=== PATIENT | male | born 1950 | race Hispanic/Latino ===

== ENCOUNTER 2018-01-04 09:26 | Observation (INO) | payer BC, MEDICARE ==
--- NOTE | 2017-12-30 10:58 | Anesthesia Consultation ---
Anesthesia Consult and Med Hx Date of service: 12/30/17 - Airway Anesthetic Teeth Evaluation: Good ROM Head & Neck: Adequate Mental/Hyoid Distance: Adequate Mallampati Class: Class III Intubation Access Assessment: Possibly Difficult - Pulmonary Exam CTA: Yes - Cardiac Exam Cardiac Exam: RRR - Pre-Operative Health Status ASA Pre-Surgery Classification: ASA3 Proposed Anesthetic Plan: General (adductor Canal black)
[~2018-01-04 09:26] MED LIST: MARCAINE-EPI 0.5%-1:200,000 INFILTRATI ONE; NEURONTIN PO NR; VANCOMYCIN PHARMACY TO DOSE IV SCH; VANCOMYCIN/NS 1 GM/250 ML 1 GM/250 ML BAG IV SCH; VERSED IV NR
[2018-01-04] MEDS ORDERED: NACL BACTERIOSTATIC INFILTRATI ONE (10:09)
[2018-01-04] MEDS ORDERED: MARCAINE 0.5% 30 ML INFILTRATI ONE (10:25)
[2018-01-04] MEDS ORDERED: PEPCID IV ONE (10:26)
[2018-01-04] MEDS: LACTATED RINGERS 1,000 ML IV SCH (10:30)
[2018-01-04 10:32] LABS: Basophils % (Auto) 0.6 % (0.0-1.8); Eosinophils # (Auto) 0.2 K/mm3 (0.0-0.4); Eosinophils % (Auto) 3.3 % (0.0-4.3); Hematocrit 47.3 % (35.5-45.6); Hemoglobin 16.4 gm/dl (11.8-15.2); Lymphocytes # (Auto) 1.5 K/mm3 (1.2-5.4); Lymphocytes % (Auto) 21.7 % (13.4-35.0); Mean Corpuscular HGB Conc 35 % (32-34); Mean Corpuscular Hemoglobin 31 pg (28-32); Mean Corpuscular Volume 88 fl (84-94); Monocytes # (Auto) 0.6 K/mm3 (0.0-0.8); Monocytes % (Auto) 8.5 % (0.0-7.3); Platelet Count 223 K/mm3 (140-440); Red Blood Count 5.36 M/mm3 (3.65-5.03); Red Cell Distribution Width 13.5 % (13.2-15.2)
[2018-01-04] MEDS ORDERED: DIPRIVAN 10 MG/ML IV ONE (10:54)
[2018-01-04] MEDS ORDERED: ZEMURON IV ONE ×3 (10:55→14:42)
[2018-01-04] MEDS ORDERED: DILAUDID ONE ×2 (10:55→16:57)
[2018-01-04] MEDS ORDERED: XYLOCAINE MPF 2% ONE (10:55)
[2018-01-04] MEDS ORDERED: MARCAINE-EPI 0.5%-1:200,000 INFILTRATI ONE ×2 (10:56→15:34)
[2018-01-04] MEDS ORDERED: NEOSPORIN GU IR ONE ×2 (10:56→14:25)
[2018-01-04] MEDS ORDERED: NACL 0.9% 200 ML ONE (11:05)
[2018-01-04] MEDS ORDERED: TRANEXAMIC ACID ONE (11:05)
[2018-01-04 11:35] LABS: BUN/Creatinine Ratio 26; Blood Urea Nitrogen 18 mg/dL (9-20); Calcium 9.3 mg/dL (8.4-10.2); Hemolysis Index 7
[2018-01-04] MEDS ORDERED: DECADRON ONE (13:13)
[2018-01-04] MEDS ORDERED: ePHEDrine 50 MG/5 ML-0.9% NACL IV ONE (13:29)
[2018-01-04] MEDS ORDERED: ROBINUL ONE (13:51)
[2018-01-04] MEDS ORDERED: BLOXIVERZ ONE (14:58)
[2018-01-04] MEDS ORDERED: LACTATED RINGERS 1,000 ML ONE (15:13)
[2018-01-04] MEDS ORDERED: DILAUDID IV PRN (17:00)
[2018-01-04] MEDS: DILAUDID IV PRN ×2 (17:00→17:20)
[2018-01-04] MEDS ORDERED: SODIUM CHLORIDE FLUSH SYRINGE 10 ML IV PRN (17:00)
[2018-01-04] MEDS ORDERED: VANCOMYCIN/NS 1 GM/250 ML 1 GM/250 ML BAG IV SCH (17:00)
--- NOTE | 2018-01-04 18:03 | Operative Report ---
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 PROCEDURE PERFORMED: Right knee unicompartmental knee replacement utilizing [employer] Childress system with size large cemented femur, size D cemented tibia, size 5 mm polyethylene insert. SURGEON: Nickolas Zendejas M.D. WATER FILTERER: Damián Schmidt CSA. ANESTHESIA: General plus adductor block. ESTIMATED BLOOD LOSS: Minimal. COMPLICATIONS: None. DESCRIPTION OF PROCEDURE: The patient underwent successful induction of anesthesia as noted. Following this, the lower extremity was meticulously prepped and draped in usual fashion after being positioned in a leg youssef. Antibiotics were preadministered. Exsanguinated and tourniquet inflated. A standard medial parapatellar incision was made with sharp dissection and carried down through the skin and subcutaneous tissue with an arthrotomy extending from the superior pole of the tibial tubercle. Sharp dissection with appropriate exposure of the joint was carried out. Lateral compartment was well preserved and intact ACL and well preserved patellofemoral compartment. Medial compartment ankylosis was noted with marked varus alignment. He had a very tight knee. Appropriate exposure of the medial joint line was carried out with resection of the meniscus. At this point in time, standard cuts were then made triplanar with appropriate alignment on the tibia utilizing extramedullary jig. Excellent cuts were made for a size 4 mm/5 mm sizing. Intramedullary chris was introduced into the femur. The posterior cut was made with appropriate alignment jig followed by spigot reamers. Gaps were then appropriately balanced for sizing for 4-5. The remainder of the meniscus was removed. Right posterior osteophytes were removed. The anterior chamfer cut was made. Wound thoroughly irrigated. The keel prepared appropriately, excellent sizing for a size D. The components were then cemented in place. It was felt that a 5 excellent sizing, slightly loose with 4 and tight with 6. Polyethylene was placed with full range of motion on the table with excellent stability, flexion and extension. All excess cement removed. Wound once again irrigated and Marcaine applied. The arthrotomy reapproximated with Ethibond sutures followed by Vicryl and Monocryl for the skin. A sterile dressing was applied, taken to the recovery room in satisfactory condition having tolerated the procedure well. [facility]# [id number] RDP/NTS
[2018-01-04] MEDS: XARELTO PO SCH (22:44)
[2018-01-04] MEDS: D5NS 1,000 ML IV SCH (22:44)
[2018-01-04] MEDS ORDERED: APRESOLINE IV PRN (22:49)
--- NOTE | 2018-01-04 22:49 | Consultation ---
History of Present Illness - Reason for Consult Consult date: 01/04/18 hypertension - History of Present Illness 67-year-old man with a history of hypertension, GERD, sleep apnea, status post right knee surgery is being consulted for management of hypertension. He states his blood pressures usually controlled at home. Sometimes he forget to take his antihypertensive but his blood pressure is fine. He does not wear mass at night for sleep apnea. Pain is controlled Review of systems Constitutional: no weight loss, chills, fever Ears, eyes, nose, mouth and throat: no nasal congestion, no nasal discharge, no sinus pressure, no vision change, no red eye. Neck: No neck pain or rigidity. Cardiovascular: no chest pain, palpitations Respiratory: no cough, shortness of breath Gastrointestinal: no abdominal pain hematochezia Genitourinary : no frequency , no hematuria Musculoskeletal: no muscle ache Integumentary: no rash, no pruritis Neurological: no parathesias, no numbness, no focal weakness Endocrine: no cold or heat intolerance, no polyuria or polydipsia Hematologic/Lymphatic: no easy bruising, no easy bleeding, no gland swelling Allergic/Immunologic: no urticaria, no angioedema. PAST MEDICAL HISTORY: hypertension, GERD, sleep apnea, PAST SURGICAL HISTORY: Tonsillectomy, right knee SOCIAL HISTORY: No alcohol, no drugs, tobacco FAMILY HISTORY: Hypertension Medications and Allergies Allergies Allergy/AdvReac Type Severity Reaction Status Date / Time Penicillins Allergy Unknown Verified 12/30/17 12:14 Sulfa (Sulfonamide Allergy Unknown Verified 12/30/17 12:14 Antibiotics) Home Medications Medication Instructions Recorded Confirmed Last Taken Type Celecoxib [celeBREX] 200 mg PO BID 12/30/17 01/04/18 12/28/17 History Krill/Om-3/Dha/Epa/Phospho/Ast 1 each PO DAILY 12/30/17 01/04/18 12/21/17 History [Krill Oil 1,000 mg Softgel] Losartan/Hydrochlorothiazide 1 each PO DAILY 12/30/17 01/04/18 01/03/18 23:59 History [Losartan-Hctz 50-12.5 mg Tab] Omeprazole 20 mg PO DAILY 12/30/17 01/04/18 01/03/18 23:59 History Rivaroxaban [Xarelto] 10 mg PO QDAY 01/04/18 01/04/18 01/03/18 History Active Meds: Active Medications Aspirin (Baby Aspirin) 162 mg PO QDAY ROSA Celecoxib (Celebrex) 200 mg PO BID ROSA Last Admin: 01/04/18 21:30 Dose: 200 mg Hydromorphone HCl (Dilaudid) 0.5 mg IV Q3H PRN PRN Reason: Pain , Severe (7-10) Lactated Ringer's (Lactated Ringers) 1,000 mls @ 100 mls/hr IV DIRECT ROSA Last Admin: 01/04/18 10:30 Dose: 100 mls/hr Vancomycin HCl (Vancomycin/Ns 1 Gm/250 Ml) 1 gm in 250 mls @ 167.007 mls/hr IV PREOP ROSA; Protocol Stop: 01/04/18 23:00 Last Admin: 01/04/18 11:10 Dose: 167.007 mls/hr Dextrose/Sodium Chloride (D5ns) 1,000 mls @ 125 mls/hr IV DIRECT ROSA Last Admin: 01/04/18 22:44 Dose: 125 mls/hr Midazolam HCl (Versed) 2 mg IV PREOP NR Stop: 01/04/18 23:59 Oxycodone/Acetaminophen (Percocet 5/325) 2 tab PO Q4H PRN PRN Reason: Pain, Moderate (4-6) Rivaroxaban (Xarelto) 10 mg PO QDAY@2200 ROSA; Protocol Last Admin: 01/04/18 22:44 Dose: 10 mg Sodium Chloride (Sodium Chloride Flush Syringe 10 Ml) 10 ml IV PRN PRN PRN Reason: LINE FLUSH Vancomycin HCl (Vancomycin Pharmacy To Dose) 1 each IV PKCONSULT [facility] Exam - Physical Exam Narrative exam: Gen. appearance: Patient lying in bed, no apparent distress HEENT: Normocephalic, atraumatic, pupils equally round and reactive to light, extraocular movement intact, and no sclericterus,. No JVD or thyromegaly or nodule,neck supple, no carotid bruit ,mucous membranes moist, no exudate or erythema Heart: S1, S2, regular rate and rhythm Lungs: Clear bilaterally, breathing comfortable Abdomen: Positive bowel sounds, non-tender, nondistended, no organomegaly Extremity:no edema cyanosis, clubbing Skin: no rash, dry, warm Neuro: Oriented 3, cranial nerves II-12 intact, speech is fluent, sensory intact - Constitutional Vitals: Temp Pulse Resp BP Pulse Ox 97.3 F L 92 H 16 134/78 96 01/04/18 20:25 01/04/18 20:25 01/04/18 21:30 01/04/18 20:25 01/04/18 20:25 Results - Labs CBC & Chem 7: 01/04/18 10:15 01/04/18 10:15 Labs: Abnormal lab results 01/04/18 01/04/18 Range/Units 10:15 10:15 RBC 5.36 H (3.65-5.03) M/mm3 Hgb 16.4 H (11.8-15.2) gm/dl Hct 47.3 H (35.5-45.6) % MCHC 35 H (32-34) % Bacon % (Auto) 8.5 H (0.0-7.3) % Creatinine 0.7 L (0.8-1.5) mg/dL Assessment and Plan Assessment Hypertension GERD Plan Blood pressure is controlled hold home antihypertensive IV hydralazine as needed if blood pressure is uncontrolled
[2018-01-05] MEDS: LACTATED RINGERS 1,000 ML IV SCH (07:07)
[2018-01-05] MEDS ORDERED: NON-FORMULARY (Omeprazole [Omeprazole] 20 MG) PO SCH (10:00)
[2018-01-05] MEDS: BABY ASPIRIN PO SCH (10:12)
[2018-01-05] MEDS: PROTONIX PO SCH (10:12)
--- NOTE | 2018-01-05 10:43 | Progress Note ---
Assessment and Plan Assessment and plan: Hypertension. Continue to hold home medication of losartan for now. Restart as needed. Continue when necessary hydralazine. GERD. Continue Protonix daily. Right knee severe DJD s/p knee replacement. Continue per orthopedics History Interval history: No new issues overnight. Hospitalist Physical - Constitutional Vitals: Temp Pulse Resp BP Pulse Ox 98.7 F 83 18 122/72 96 01/05/18 08:20 01/05/18 08:19 01/05/18 08:20 01/05/18 08:19 01/05/18 09:47 General appearance: Present: no acute distress, well-nourished - EENT Eyes: Present: PERRL, EOM intact ENT: hearing intact, clear oral mucosa, dentition normal - Neck Neck: Present: supple, normal ROM - Respiratory Respiratory effort: normal Respiratory: bilateral: CTA - Cardiovascular Rhythm: regular Heart Sounds: Present: S1 & S2. Absent: gallop, rub - Extremities Extremities: no ischemia, No edema, Full ROM - Abdominal General gastrointestinal: soft, non-tender, non-distended, normal bowel sounds - Integumentary Integumentary: Present: clear, warm, dry - Neurologic Neurologic: CNII-XII intact, moves all extremities Results - Labs CBC & Chem 7: 01/04/18 10:15 01/04/18 10:15 Labs: Laboratory Last Values WBC 7.0 K/mm3 (4.5-11.0) 01/04/18 10:15 RBC 5.36 M/mm3 (3.65-5.03) H 01/04/18 10:15 Hgb 16.4 gm/dl (11.8-15.2) H 01/04/18 10:15 Hct 47.3 % (35.5-45.6) H 01/04/18 10:15 MCV 88 fl (84-94) 01/04/18 10:15 MCH 31 pg (28-32) 01/04/18 10:15 MCHC 35 % (32-34) H 01/04/18 10:15 RDW 13.5 % (13.2-15.2) 01/04/18 10:15 Plt Count 223 K/mm3 (140-440) 01/04/18 10:15 Lymph % (Auto) 21.7 % (13.4-35.0) 01/04/18 10:15 Kimball % (Auto) 8.5 % (0.0-7.3) H 01/04/18 10:15 Eos % (Auto) 3.3 % (0.0-4.3) 01/04/18 10:15 Baso % (Auto) 0.6 % (0.0-1.8) 01/04/18 10:15 Lymph # 1.5 K/mm3 (1.2-5.4) 01/04/18 10:15 Kimball # 0.6 K/mm3 (0.0-0.8) 01/04/18 10:15 Eos # 0.2 K/mm3 (0.0-0.4) 01/04/18 10:15 Baso # 0.0 K/mm3 (0.0-0.1) 01/04/18 10:15 Seg Neutrophils % 65.9 % (40.0-70.0) 01/04/18 10:15 Seg Neutrophils # 4.6 K/mm3 (1.8-7.7) 01/04/18 10:15 Sodium 138 mmol/L (137-145) 01/04/18 10:15 Potassium 3.9 mmol/L (3.6-5.0) 01/04/18 10:15 Chloride 99.7 mmol/L (98-107) 01/04/18 10:15 Carbon Dioxide 25 mmol/L (22-30) 01/04/18 10:15 Anion Gap 17 mmol/L 01/04/18 10:15 BUN 18 mg/dL (9-20) 01/04/18 10:15 Creatinine 0.7 mg/dL (0.8-1.5) L 01/04/18 10:15 Estimated GFR > 60 ml/min 01/04/18 10:15 BUN/Creatinine Ratio 26 % 01/04/18 10:15 Glucose 93 mg/dL (75-100) 01/04/18 10:15 Calcium 9.3 mg/dL (8.4-10.2) 01/04/18 10:15
[2018-01-05] MEDS: PERCOCET 5/325 PO PRN ×2 (12:07→18:01)
[2018-01-05] MEDS: D5NS 1,000 ML IV SCH (17:06)
[2018-01-05] MEDS: XARELTO PO SCH (21:05)
[2018-01-06] MEDS: PERCOCET 5/325 PO PRN ×3 (04:56→13:52)
[2018-01-06] MEDS: D5NS 1,000 ML IV SCH (04:57)
[2018-01-06] MEDS: PROTONIX PO SCH (09:16)
[2018-01-06] MEDS: BABY ASPIRIN PO SCH (09:16)
--- NOTE | 2018-01-06 10:23 | Progress Note ---
Assessment and Plan Assessment and plan: Hypertension. Restart losartan daily. Continue when necessary hydralazine. GERD. Continue Protonix daily. Right knee severe DJD s/p knee replacement. Continue per orthopedics History Interval history: No new issues overnight. Hospitalist Physical - Constitutional Vitals: Temp Pulse Resp BP Pulse Ox 98.4 F 71 18 119/65 94 01/06/18 00:31 01/06/18 00:31 01/06/18 04:56 01/06/18 00:31 01/06/18 00:31 General appearance: Present: no acute distress, well-nourished - EENT Eyes: Present: PERRL, EOM intact ENT: hearing intact, clear oral mucosa, dentition normal - Neck Neck: Present: supple, normal ROM - Respiratory Respiratory effort: normal Respiratory: bilateral: CTA - Cardiovascular Rhythm: regular Heart Sounds: Present: S1 & S2. Absent: gallop, rub - Extremities Extremities: no ischemia, No edema, Full ROM - Abdominal General gastrointestinal: soft, non-tender, non-distended, normal bowel sounds - Integumentary Integumentary: Present: clear, warm, dry - Neurologic Neurologic: CNII-XII intact, moves all extremities Results - Labs CBC & Chem 7: 01/04/18 10:15 01/04/18 10:15 Labs: Laboratory Last Values WBC 7.0 K/mm3 (4.5-11.0) 01/04/18 10:15 RBC 5.36 M/mm3 (3.65-5.03) H 01/04/18 10:15 Hgb 16.4 gm/dl (11.8-15.2) H 01/04/18 10:15 Hct 47.3 % (35.5-45.6) H 01/04/18 10:15 MCV 88 fl (84-94) 01/04/18 10:15 MCH 31 pg (28-32) 01/04/18 10:15 MCHC 35 % (32-34) H 01/04/18 10:15 RDW 13.5 % (13.2-15.2) 01/04/18 10:15 Plt Count 223 K/mm3 (140-440) 01/04/18 10:15 Lymph % (Auto) 21.7 % (13.4-35.0) 01/04/18 10:15 Kinney % (Auto) 8.5 % (0.0-7.3) H 01/04/18 10:15 Eos % (Auto) 3.3 % (0.0-4.3) 01/04/18 10:15 Baso % (Auto) 0.6 % (0.0-1.8) 01/04/18 10:15 Lymph # 1.5 K/mm3 (1.2-5.4) 01/04/18 10:15 Kinney # 0.6 K/mm3 (0.0-0.8) 01/04/18 10:15 Eos # 0.2 K/mm3 (0.0-0.4) 01/04/18 10:15 Baso # 0.0 K/mm3 (0.0-0.1) 01/04/18 10:15 Seg Neutrophils % 65.9 % (40.0-70.0) 01/04/18 10:15 Seg Neutrophils # 4.6 K/mm3 (1.8-7.7) 01/04/18 10:15 Sodium 138 mmol/L (137-145) 01/04/18 10:15 Potassium 3.9 mmol/L (3.6-5.0) 01/04/18 10:15 Chloride 99.7 mmol/L (98-107) 01/04/18 10:15 Carbon Dioxide 25 mmol/L (22-30) 01/04/18 10:15 Anion Gap 17 mmol/L 01/04/18 10:15 BUN 18 mg/dL (9-20) 01/04/18 10:15 Creatinine 0.7 mg/dL (0.8-1.5) L 01/04/18 10:15 Estimated GFR > 60 ml/min 01/04/18 10:15 BUN/Creatinine Ratio 26 % 01/04/18 10:15 Glucose 93 mg/dL (75-100) 01/04/18 10:15 Calcium 9.3 mg/dL (8.4-10.2) 01/04/18 10:15
[2018-01-06] MEDS ORDERED: CEPHULAC PO ONE (15:00)
[2018-01-06 16:43] VITALS: BP 118/63
[2018-01-07] MEDS ORDERED: COZAAR PO SCH (10:00)
== END 2018-01-06 17:25 | disposition home or self-care (01) ==
LOC: OR 09:26 → EDSTATUS 10:00 → 3B-SURG 17:38
PROVIDERS: ADMIT Orthopaedic Surgery; ATTEND Hospitalist
DX: M17.11 Unilateral primary osteoarthritis, right knee (principal)
CPT/HCPCS: 27442; 36415; 64450; 80048; 85025; 88304; 88311; 94760; 96365; 96375; 97110; 97116; 97161; C1776; G0378; G8978; G8979; J1100; J1170; J2250; J2704; J2710; J3370; J7042; J7120; 88305